=== PATIENT | female | born 1985 | race African-American/Black ===

== ENCOUNTER 2018-01-08 09:30 | Observation (INO) | payer MEDICAID ==
[~2018-01-08] VITALS: Ht 152.4 cm; Wt 92.1 kg
[2018-01-08] MEDS ORDERED: LACTATED RINGER'S 1,000 ML IV SCH (09:40)
[2018-01-08 10:32] LABS: Basophils # (auto) 0.1 uL; Basophils % (auto) 0.6 % (0.0-2.0); Eosinophils # (auto) 0.3 uL; Eosinophils % (auto) 2.7 % (0.0-7.0); Hematocrit 37.5 % (36.0-46.0); Hemoglobin 12.9 g/dL (12.2-16.2); Lymphocytes # (auto) 2.6 uL; Lymphocytes % (auto) 27.7 % (10.0-50.0); Mean Corpuscular Hemoglobin 30.9 pg (28.0-32.0); Mean Corpuscular Hgb Conc. 34.5 g/dL (32.0-36.0); Mean Corpuscular Volume 89.5 fL (80.0-100.0); Monocytes # (auto) 0.8 uL; Monocytes % (auto) 8.6 % (0.0-12.0); Neutrophils # (auto) 5.7 uL; Neutrophils % (auto) 60.4 % (37.0-80.0); Nucleated Red Blood Cells % 0.1 %; Platelet Count (auto) 220 10^3/uL (140-450); Red Blood Cells 4.19 10^6/uL (4.0-5.20); Red Cell Distribution Width 12.7 % (11.8-14.3); White Blood Cell 9.5 10^3/uL (4.4-10.8)
[2018-01-08 10:48] LABS: Albumin 2.5 g/dL (3.4-5.0); BUN/Creatinine Ratio 8.2; Bilirubin, Total 1.2 mg/dL (0.2-1.0); Calcium 7.8 mg/dL (8.5-10.1); Potassium 3.6 mmol/L (3.5-5.1); Total Protein 6.5 g/dL (6.4-8.2)
[2018-01-08 10:49] LABS: Urine Bacteria MOD /hpf (None Seen); Urine Blood Negative /uL (Negative); Urine Mucus FEW (None Seen); Urine Specific Gravity 1.022 (1.001-1.035); Urine WBC 6 /hpf (0 - 5)
[2018-01-08] MEDS ORDERED: PREN-96 PO (11:03)
[2018-01-08] MEDS ORDERED: cefTRIAXone 1GM/10ml IVPUSH 10 ML IV SCH (11:51)
== END 2018-01-08 14:00 | disposition home or self-care (01) | DRG 563 ==
LOC: LDRP 09:30
PROVIDERS: ADMIT Specialist; ATTEND Specialist
DX: O60.03 Preterm labor without delivery, third trimester (principal); Z3A.33 33 weeks gestation of pregnancy
CPT/HCPCS: 36415; 59025; 76818; 80053; 81001; 81002; 85025; 87086; 96361; 96374; G0378; J0696; 96366

== ENCOUNTER 2018-01-14 18:15 | Observation (INO) | payer MEDICAID ==
[~2018-01-14 18:15] MED LIST: PREN-96 PO
[2018-01-14] MEDS ORDERED: NIF10C GT (20:13)
[2018-01-14 20:35] LABS: Urine Bacteria NONE SEEN /hpf (None Seen); Urine Blood Negative /uL (Negative); Urine Mucus FEW (None Seen); Urine Specific Gravity 1.022 (1.001-1.035); Urine WBC 2 /hpf (0 - 5)
== END 2018-01-14 23:30 | disposition home or self-care (01) | DRG 566 ==
LOC: LDRP 18:15
PROVIDERS: ADMIT Specialist; ATTEND Specialist
DX: O62.9 Abnormality of forces of labor, unspecified (principal); O26.893 Other specified pregnancy related conditions, third trimester; R51 Headache; Z3A.34 34 weeks gestation of pregnancy
CPT/HCPCS: 59025; 76815; 76817; 81001; 81002; G0378

== ENCOUNTER 2018-02-18 08:12 | Inpatient (IN) | payer MEDICAID ==
[2018-02-18] VITALS (12 sets, daily range): BP systolic 84–121; BP diastolic 41–76
[~2018-02-18] VITALS: Ht 152.4 cm; Wt 91.2 kg
[~2018-02-18 08:12] MED LIST changes: +NIF10C GT
[2018-02-18] MEDS ORDERED: LACTATED RINGER'S 1,000 ML IV SCH (08:32)
[2018-02-18 09:32] LABS: Basophils # (auto) 0.1 uL; Basophils % (auto) 0.6 % (0.0-2.0); Eosinophils # (auto) 0.2 uL; Hematocrit 39.2 % (36.0-46.0); Hemoglobin 13.5 g/dL (12.2-16.2); Mean Corpuscular Hemoglobin 29.9 pg (28.0-32.0); Mean Corpuscular Hgb Conc. 34.4 g/dL (32.0-36.0); Monocytes # (auto) 0.8 uL; Monocytes % (auto) 7.3 % (0.0-12.0); Neutrophils # (auto) 6.6 uL; Neutrophils % (auto) 62.1 % (37.0-80.0); Nucleated Red Blood Cells % 0.1 %; Platelet Count (auto) 255 10^3/uL (140-450); Red Blood Cells 4.51 10^6/uL (4.0-5.20); Red Cell Distribution Width 14.1 % (11.8-14.3); White Blood Cell 10.6 10^3/uL (4.4-10.8)
[2018-02-18 09:35] LABS: Urine Bacteria NONE SEEN /hpf (None Seen); Urine Blood 1+ /uL (Negative); Urine Mucus FEW (None Seen); Urine Specific Gravity 1.024 (1.001-1.035); Urine WBC 70 /hpf (0 - 5)
[2018-02-18 09:44] LABS: Albumin 2.4 g/dL (3.4-5.0); BUN/Creatinine Ratio 8.5; Calcium 8.5 mg/dL (8.5-10.1); INR 0.98 (0.9-1.15); Partial Thromboplastin Time 33.3 sec (23.78-33.04); Potassium 4.2 mmol/L (3.5-5.1); Prothrombin Time 10.5 sec (9.27-12.13)
[2018-02-18 09:47] LABS: Bilirubin, Total 1.1 mg/dL (0.2-1.0); Total Protein 6.9 g/dL (6.4-8.2)
[2018-02-18] MEDS ORDERED: TETRACAINE 1% INJ 2 ML VIAL IJ ONE ×2 (11:51→12:52)
[2018-02-18] MEDS ORDERED: PHENYLEPHRINE HCL 10 MG/ML VL ONE (11:53)
[2018-02-18] MEDS ORDERED: OXYTOCIN 10 UNIT/ML 10ML VIAL ONE (11:56)
[2018-02-18] MEDS ORDERED: MORPHINE SULF(PF) 0.5MG/ML 10ML VIAL ONE (11:57)
[2018-02-18] MEDS ORDERED: CLINDAMYCIN 600MG IV 50 ML IV ONE (12:30)
[2018-02-18] MEDS ORDERED: GENTAMICIN SULFATE 80 MG in D5W 5% 100 ML IV ONE (12:30)
[2018-02-18] MEDS ORDERED: ceFAZolin 1GM VL ONE (12:36)
[2018-02-18] MEDS ORDERED: METOCLOPRAMIDE HCL 5MG/ml INJ 2ml VIAL ONE (13:04)
[2018-02-18] MEDS ORDERED: MIDAZOLAM HCL 1MG/1ML-2 ML VIAL ONE (13:24)
[2018-02-18] MEDS ORDERED: ONDANSETRON HCL 4 MG/2 ML VIAL IV PRN (13:45)
[2018-02-18] MEDS ORDERED: KETOROLAC TROMETH 30 MG/ML 1ML VIAL IV PRN (13:45)
[2018-02-18] MEDS ORDERED: diphenhdrAMINE HCL 50 MG/1 ML VL IV PRN (13:45)
[2018-02-18] MEDS ORDERED: ONDANSETRON HCL 4 MG/2 ML VIAL IV ONE (13:45)
[2018-02-18] MEDS ORDERED: HYDROmorphone HCL 2 MG/ML VL IV PRN (13:45)
[2018-02-18] MEDS ORDERED: NALOXONE HCL 0.4 MG/ML VIAL IV PRN ×2 (13:45)
[2018-02-18] MEDS ORDERED: MORPHINE SULFATE 4 MG/ML SYR/VIAL IV PRN (14:15)
[2018-02-18] MEDS ORDERED: OXYTOCIN 10UNIT/ML 1ML VIAL ONE (14:27)
[2018-02-18] MEDS: ONDANSETRON HCL 4 MG/2 ML VIAL IV PRN ×2 (16:52→21:56)
[2018-02-18] MEDS ORDERED: KETOROLAC TROMETH 30 MG/ML 1ML VIAL IV SCH (18:00)
[2018-02-18] MEDS: ceFAZolin 1GM/50ML 50 ML IV SCH (20:45)
[2018-02-18] MEDS: LACTATED RINGER'S 1,000 ML IV SCH ×2 (21:00→22:13)
[2018-02-19] VITALS (8 sets, daily range): BP systolic 93–107; BP diastolic 41–77
[2018-02-19] MEDS ORDERED: PHISODERM TOP SOLN 240ML BTL TOP ONE (01:54)
[2018-02-19] MEDS: ceFAZolin 1GM/50ML 50 ML IV SCH (05:15)
[2018-02-19 06:05] LABS: RPR Non Reactive (Non Reactive)
[2018-02-19] MEDS: LACTATED RINGER'S 1,000 ML IV SCH ×3 (06:13→22:13)
[2018-02-19 08:04] LABS: Basophils # (auto) 0 uL; Basophils % (auto) 0.4 % (0.0-2.0); Eosinophils # (auto) 0.2 uL; Eosinophils % (auto) 1.5 % (0.0-7.0); Hematocrit 37.4 % (36.0-46.0); Hemoglobin 12.6 g/dL (12.2-16.2); Lymphocytes # (auto) 2.3 uL; Lymphocytes % (auto) 18.9 % (10.0-50.0); Mean Corpuscular Hemoglobin 29.1 pg (28.0-32.0); Mean Corpuscular Hgb Conc. 33.8 g/dL (32.0-36.0); Mean Corpuscular Volume 86.1 fL (80.0-100.0); Monocytes # (auto) 0.8 uL; Monocytes % (auto) 6.8 % (0.0-12.0); Neutrophils % (auto) 72.4 % (37.0-80.0); Platelet Count (auto) 220 10^3/uL (140-450); Red Blood Cells 4.34 10^6/uL (4.0-5.20); Red Cell Distribution Width 13.7 % (11.8-14.3); White Blood Cell 12.4 10^3/uL (4.4-10.8)
[2018-02-19] MEDS ORDERED: HYDROcodone-ACET 5/325MG TAB PO PRN (11:00)
[2018-02-19] MEDS: HYDROcodone-ACET 5/325MG TAB PO PRN ×2 (11:12→19:53)
[2018-02-19] MEDS: DOCUSATE SOD 100 MG CAP PO SCH ×2 (11:13→21:29)
[2018-02-19] MEDS ORDERED: CEPHALEXIN 250 MG CAP PO SCH (12:00)
[2018-02-19] MEDS ORDERED: diphenhdrAMINE HCL 25 MG CAP PO ONE (12:45)
[2018-02-19] MEDS: CLINDAMYCIN HCL 150 MG CAP PO SCH ×2 (18:35→23:45)
[2018-02-19] MEDS ORDERED: TETANUS-DIPTH-ACEL PERTUSSIS 0.5ML SYRG IM ONE (19:30)
[2018-02-20 03:00] VITALS: BP 115/76
[2018-02-20] MEDS: HYDROcodone-ACET 5/325MG TAB PO PRN ×4 (03:11→20:28)
[2018-02-20] MEDS: CLINDAMYCIN HCL 150 MG CAP PO SCH ×3 (06:02→17:36)
[2018-02-20] MEDS: LACTATED RINGER'S 1,000 ML IV SCH ×2 (06:13→14:13)
[2018-02-20 07:10] VITALS: BP 99/63
[2018-02-20 11:15] VITALS: BP 101/65
[2018-02-20] MEDS: DOCUSATE SOD 100 MG CAP PO SCH ×2 (11:48→22:24)
[2018-02-20 14:50] VITALS: BP 115/63
[2018-02-20] MEDS: IBUPROFEN 800 MG TAB PO PRN (15:04)
[2018-02-20 19:00] VITALS: BP 111/71
[2018-02-20 23:00] VITALS: BP 119/50
[2018-02-21] MEDS: IBUPROFEN 800 MG TAB PO PRN ×2 (00:09→08:10)
[2018-02-21] MEDS: CLINDAMYCIN HCL 150 MG CAP PO SCH ×3 (00:09→12:00)
[2018-02-21 03:00] VITALS: BP_SYST 116; BP_SYST 88; BP_DIAS 50; BP_DIAS 69
[2018-02-21] MEDS: HYDROcodone-ACET 5/325MG TAB PO PRN ×2 (03:24→12:45)
[2018-02-21 07:00] VITALS: BP 111/67
[2018-02-21] MEDS: DOCUSATE SOD 100 MG CAP PO SCH (09:39)
[2018-02-21 11:10] VITALS: BP 118/72
== END 2018-02-21 14:30 | disposition home or self-care (01) | DRG 540 ==
LOC: LDRP 08:12 → OBSVTOIN 08:12 → LDRP 15:26
PROVIDERS: ADMIT Obstetrics & Gynecology; ATTEND Obstetrics & Gynecology
PROC: 10D00Z1 Extraction of Products of Conception, Low, Open Approach (ICD-10-PCS; principal; 2018-02-18 12:35)
DX: O34.211 Maternal care for low transverse scar from previous cesarean delivery (principal); K66.0 Peritoneal adhesions (postprocedural) (postinfection); N85.8 Other specified noninflammatory disorders of uterus; Z37.0 Single live birth; Z3A.39 39 weeks gestation of pregnancy
CPT/HCPCS: 36415; 51702; 59025; 80053; 81001; 81002; 85025; 85610; 85730; 86592; 86850; 86900; 86901; 87077; 87186; 87205; 90471; 90715; 94762; 96365; 96366; 96372; 96374; 96375; 96376; G0378; J0690; J2250; J2405; J2590; J7060